=== PATIENT | female | born 1965 | race Caucasian/White ===

== ENCOUNTER 2020-10-30 00:20 | Emergency (ER) | payer OTHER ==
[~2020-10-30 00:20] MED LIST: ADVIL200 M1 PO; BACTRIM DS TAB1 EACH PO; BENADRYL 25MG C25 MG PO; CARAFATE1 GM PO; CYANOCOBAL1000 MCG/1 SC; FERROUS SULFAT325 M2 PO; FOLIC ACID 1 MG1 MG PO; IMITREX100 MG PO; KEFLEX CAP 500500 MG PO; NICOTINE PATCH1 EAC2 TD; OMEPRAZOLE40 MG PO; ONE DAILY MULT1 EAC1 PO; PERCOCET 5/325 T1 EA PO; VITAMIN B-1100 M1 PO
[2020-10-30 02:12] LABS: HEMOGLOBIN 7.6 gm/dl (12.3-15.3); RED BLOOD COUNT 4.64 M/UL (4.00-5.10); WHITE BLOOD COUNT 7.2 K/UL (4.5-11.0)
[2020-10-30 02:25] LABS: BUN/CREATININE RATIO 23 (0-10)
== END 2020-10-30 03:13 | disposition home or self-care (01) ==
LOC: ER1 00:20
PROVIDERS: Emergency Medicine
DX: R10.12 Left upper quadrant pain (principal); F17.210 Nicotine dependence, cigarettes, uncomplicated; Z88.0 Allergy status to penicillin
CPT/HCPCS: 71045; 80053; 82550; 82553; 83605; 83690; 84484; 85025; 85610; 85730; 93005; 99284